=== PATIENT | male | born 1975 | race Caucasian/White ===

== ENCOUNTER 2016-05-23 04:55 | Emergency (ER) | payer OTHER | END 2016-05-23 06:28 | disposition home or self-care (01) | LOC: CED 04:55 | DX: S51.011A Laceration without foreign body of right elbow, initial encounter (principal); F10.129 Alcohol abuse with intoxication, unspecified; Y08.89XA Assault by other specified means, initial encounter; Y92.89 Other specified places as the place of occurrence of the external cause | CPT/HCPCS: 12001; 99283 ==